=== PATIENT | male | born 1975 | race Caucasian/White ===

== ENCOUNTER 2018-01-28 07:01 | Emergency (ER) | payer SELFPAY ==
--- NOTE | 2018-01-28 08:01 | RAD ---
INDICATION: Left wrist injury. COMPARISON: None TECHNIQUE: AP, lateral, and oblique views were obtained. FINDINGS: There are minor irregular is about the ulnar styloid but there is no definitive fracture. The osseous structures are otherwise normal. The radiocarpal joint is intact. IMPRESSION: MILD IRREGULARITIES OF THE ULNAR STYLOID BUT NO DEFINITIVE FRACTURE
--- NOTE | 2018-01-28 08:25 | UC ---
Hand/Wrist HPI - HPI Summary HPI Summary: 42 yo male with the sudden onset of lwft wrist pain this AM at work lifting 25 lb object felt pop sudden onset swelling he is right handed no prior left wrist complaints/injuries - History Of Current Complaint Chief Complaint: UCUpperExtremity Stated Complaint: WRIST INJURY Time Seen by Provider: 01/28/18 07:15 Hx Obtained From: Patient Onset/Duration: Sudden Onset, Lasting Hours Severity Initially: Moderate Severity Currently: Moderate Pain Intensity: 6 - declines analgesic Pain Scale Used: 0-10 Numeric Character Of Pain: Sharp Aggravating Factor(s): Movement, Lifting Alleviating Factor(s): Rest Associated Signs And Symptoms: Positive: Swelling Related History: Occupational Injury, Dominant Hand Right - Allergies/Home Medications Allergies/Adverse Reactions: Allergies Allergy/AdvReac Type Severity Reaction Status Date / Time No Known Allergies Allergy Verified 01/28/18 07:20 Home Medications: Home Medications Febuxostat [Uloric] 40 mg PO BID 01/28/18 [History Confirmed 01/28/18] Indomethacin CAP* [Indocin CAP*] 50 mg PO BID PRN 01/28/18 [History Confirmed ] Oxycodone HCl/Acetaminophen [Percocet] 1 tab PO BID PRN 01/28/18 [History Confirmed 01/28/18] PMH/Surg Hx/FS Hx/Imm Hx Previously Healthy: Yes - gout - Surgical History Surgical History: Yes Surgery Procedure, Year, and Place: urethral stricture - Family History Known Family History: Positive: Cardiac Disease, Hypertension, Diabetes - Social History Alcohol Use: None Substance Use Type: None Smoking Status (MU): Former Smoker Review of Systems Constitutional: Negative Skin: Negative Eyes: Negative ENT: Negative Respiratory: Negative Cardiovascular: Negative Gastrointestinal: Negative Genitourinary: Negative Motor: Negative Neurovascular: Negative Musculoskeletal: Arthralgia Neurological: Negative Psychological: Negative Is Patient Immunocompromised?: No All Other Systems Reviewed And Are Negative: Yes Physical Exam Triage Information Reviewed: Yes Appearance: Well-Appearing, No Pain Distress, Well-Nourished Vital Signs: Initial Vital Signs Temp 98.7 F 01/28/18 07:15 Pulse 77 01/28/18 07:15 Resp 16 01/28/18 07:15 BP 130/87 01/28/18 07:15 Pulse Ox 96 01/28/18 07:15 Vital Signs Reviewed: Yes Eyes: Positive: Conjunctiva Clear ENT: Negative: Nasal congestion, Nasal drainage, Trismus, Muffled voice, Hoarse voice Neck: Positive: Supple Respiratory: Positive: Lungs clear, Normal breath sounds, No respiratory distress, No accessory muscle use Cardiovascular: Positive: RRR, No Murmur Musculoskeletal: Positive: ROM Limited @ - left wrist, Edema @ - tender swollen ulnar aspect Psychological Exam: Normal Skin Exam: Normal Diagnostics - Radiology No standard instances Xray Interpretation: No Acute Changes - MILD IRREGULARITIES OF THE ULNAR STYLOID BUT NO DEFINITIVE FRACTURE Radiology Interpretation Completed By: Radiologist Hand/Wrist Course/Dx - Differential Dx/Diagnosis Provider Diagnoses: left wrist injury. suspect TFCC tear Discharge - Sign-Out/Discharge Documenting (check all that apply): Discharge - Discharge Plan Condition: Stable Disposition: HOME Patient Education Materials: Wrist Sprain (ED) Forms: *Work Release Referrals: Kris Wilkinson MD [Medical Doctor] - As Soon As Possible Additional Instructions: splint advil I suspect you have a tear to the TRIANGULAR FIB[employer]ARTIL[employer] call orthopedist this AM and make an appt - Billing Disposition and Condition Condition: STABLE Disposition: HOME
== END 2018-01-28 08:22 | disposition home or self-care (01) ==
LOC: UCEAST 07:01
DX: S69.92XA Unspecified injury of left wrist, hand and finger(s), initial encounter (principal); X50.0XXA Overexertion from strenuous movement or load, initial encounter; Y93.9 Activity, unspecified; Y92.89 Other specified places as the place of occurrence of the external cause; Y99.0 Civilian activity done for income or pay; Z87.891 Personal history of nicotine dependence
CPT/HCPCS: 99202; G0463